=== PATIENT | male | born 1990 | race Caucasian/White ===

== ENCOUNTER 2021-04-16 16:28 | Emergency (ER) | payer SELFPAY ==
[2021-04-16] MEDS ORDERED: Ketorolac Tromethamine 60 MG/2 ML VIAL ONE (16:49)
== END 2021-04-16 16:54 | disposition home or self-care (01) ==
LOC: BURERS 16:28
DX: K03.81 Cracked tooth (principal); F17.210 Nicotine dependence, cigarettes, uncomplicated
CPT/HCPCS: 96372; 99282; J1885